=== PATIENT | male | born 1950 | race African-American/Black ===

== ENCOUNTER 2017-03-24 15:13 | Inpatient (IN) | payer BC, MEDICARE ==
[2017-03-24] VITALS (19 sets, daily range): BP systolic 99–133; BP diastolic 53–95
[~2017-03-24] VITALS: Ht 190.5 cm; Wt 125.2 kg
[~2017-03-24 15:13] MED LIST: AMIODARONE HCL200 MG PO; ASPIR 8181 MG PO; CIPRO500 MG PO; CLARITIN-D 241 EACH PO; FENOFIBRATE145 MG PO; FINASTERIDE5 MG PO; FLUTICASONE PRO16 GM; HEMOCYTE PLUS1 EACH PO; MELATONIN 3 MG1 EACH PO; METOPROLOL TART25 MG PO; MILK OF MA2400 MG/10 PO; TAMSULOSIN HCL0.4 MG PO; TRICOR145 MG PO; VITAMIN B12-FO1 EACH PO; VITAMIN C500 M1 PO; VITAMIN D250000 UNIT PO; WARFARIN SODIUM2 MG PO; WARFARIN SODIUM3 MG PO; XARELTO20 MG PO
[2017-03-24] MEDS ORDERED: FERROUS SULFAT325 MG (15:26)
[2017-03-24] MEDS ORDERED: LORATADINE-D 21 EACH PO (15:26)
[2017-03-24] MEDS ORDERED: SODIUM CHLORIDE 0.9% 1000ML 1,000 ML ONE (15:41)
[2017-03-24] MEDS ORDERED: PANTOPRAZOLE 40 MG 10ML VIAL IV STA (15:48)
[2017-03-24] MEDS ORDERED: ACETAMINOPHEN 325 MG TAB PO STA (15:51)
[2017-03-24] MEDS ORDERED: FAMOTIDINE 20 MG/2 ML VIAL IV ONE (16:00)
[2017-03-24] MEDS ORDERED: SODIUM CHLORIDE 0.9% 250ML 250 ML IV ONE ×2 (16:00→16:15)
[2017-03-24] MEDS ORDERED: DIPHENHYDRAMINE HCL INJ 50 MG/ML VIAL IV ONE (16:00)
[2017-03-24] MEDS ORDERED: ACETAMINOPHEN 325 MG TAB PO PRN (16:02)
[2017-03-24] MEDS ORDERED: SODIUM CHLORIDE 0.9% 1000ML 1,000 ML IV STA (16:02)
[2017-03-24 16:07] LABS: BASOPHILS % 0.6 % (0.0-1.0); EOSINOPHILS # (AUTO) 0.1 (0.0-0.4); EOSINOPHILS % 2.2 % (0.0-6.0); HEMATOCRIT 28.9 % (38.2-49.6); HEMOGLOBIN 9.6 g/dL (14.0-18.0); LYMPHOCYTES # (AUTO) 1.3 (1.0-3.2); MEAN CORPUSCULAR HEMOGLOBIN 32.9 pg (28-32); MEAN CORPUSCULAR HGB CONC 33.2 g/dL (31-35); MONOCYTES # (AUTO) 0.5 (0.2-0.8); NEUTROPHILS # (AUTO) 4.3 (2.1-6.9); NEUTROPHILS % 67.9 % (38.7-80.0); PLATELET COUNT 297 x10e3/uL (140-360); RED BLOOD COUNT 2.92 x10e6/uL (4.3-5.7); RED CELL DISTRIBUTION WIDTH 14.5 % (11.7-14.4)
[2017-03-24] MEDS: SODIUM CHLORIDE 0.9% 1000ML 1,000 ML IV SCH ×2 (16:08)
[2017-03-24 16:11] LABS: INR 1.09; PROTHROMBIN TIME 14.7 seconds (11.9-14.5)
[2017-03-24 16:12] LABS: PARTIAL THROMBOPLASTIN TIME 27.7 seconds (23.8-35.5)
[2017-03-24] MEDS ORDERED: DIPHENHYDRAMINE HCL INJ 50 MG/ML VIAL IV PRN (16:15)
[2017-03-24] MEDS ORDERED: FAMOTIDINE 20 MG/2 ML VIAL IV PRN (16:15)
[2017-03-24 16:22] LABS: ALANINE AMINOTRANSFERASE 29 IU/L (0-55); ALBUMIN 3.5 g/dL (3.5-5.0); ALBUMIN/GLOBULIN RATIO 1.4 (0.8-2.0); ALKALINE PHOSPHATASE 33 IU/L (40-150); ANION GAP 12.4 mmol/L (8-16); BLOOD UREA NITROGEN 28 mg/dL (7-26); BUN/CREATININE RATIO 23 (6-25); CALCIUM 8.9 mg/dL (8.4-10.2); CARBON DIOXIDE 21 mmol/L (22-29); CHLORIDE 109 mmol/L (98-107); CREATININE, SERUM 1.23 mg/dL (0.72-1.25); EST GLOMERULAR FILTRATION RATE > 60 ML/MIN (60-); GLUCOSE 95 mg/dL (74-118); MAGNESIUM 2.2 MG/DL (1.3-2.1); POTASSIUM 4.4 mmol/L (3.5-5.1); SODIUM 138 mmol/L (136-145)
[2017-03-24] MEDS: METRONIDAZOLE 500MG/NS 100ML 100 ML IV SCH ×2 (16:34→22:25)
[2017-03-24 16:41] LABS: CREATINE KINASE MB 5.9 ng/mL (0.00-5.00); THYROID STIMULATING HORMONE 0.918 uIU/mL (0.350-4.940); TROPONIN I 0.011 ng/mL (0-0.300)
--- NOTE | 2017-03-24 16:59 | Diagnostic Imaging Report ---
PROCEDURE: A single AP view of the chest. COMPARISON: The 09/14/16 INDICATIONS: RECTAL BLEED TODAY FINDINGS: Lines/tubes: None. Lungs: Limited by low lung volumes and body habitus. Central vascular congestion. No definite focal consolidation. Pleura: There is no pleural effusion or pneumothorax. Heart and mediastinum: The cardiac silhouette is borderline on this AP view. Bones: No acute bony abnormality. IMPRESSION: Limited as above. Central vascular congestion. Dictated by: Moi Dash M.D. on 03/24/2017 at 17:07 Electronically approved by: Moi Dash M.D. on 03/24/2017 at 17:07
[2017-03-24] MEDS: CIPROFLOXACIN 400 MG/D5W 200ML 200 ML IV SCH (17:00)
--- NOTE | 2017-03-24 17:37 | Diagnostic Imaging Report ---
EXAM: CT Abdomen and Pelvis WITH contrast INDICATION: Rectal bleeding and lower abdominal pain. \S\IV ONLY , IF CREAT HIGH, NO IV AND NO ORAL \[id number] \S\1630 \S\Y COMPARISON: None. TECHNIQUE: Abdomen and pelvis were scanned utilizing a multidetector helical scanner from the lung base to the pubic symphysis after administration of IV contrast. Coronal and sagittal reformations were obtained. Routine protocol was performed. Scan was performed when during portal venous phase. IV CONTRAST: 100 mL of Isovue-370 ORAL CONTRAST: Water COMPLICATIONS: None RADIATION DOSE: Total DLP: 870.82 mGy*cm Estimated effective dose: (DLP x 0.015 x size factor) mSv CTDIvol has been reviewed. It is below the limits set by the Radiation Protocol Committee (RPC). FINDINGS: LINES and TUBES: None. LOWER THORAX: Unremarkable. Mild bibasilar atelectasis. HEPATOBILIARY: Multiple hepatic hypodensities which cannot be fully characterized on this single phase study, the largest in left hepatic lobe measuring 2.3 cm (series 2, image 12). Alternatively this could be 2 adjacent smaller lesions. There are additional hypodensities in hepatic dome measuring 0.9 cm (series 2, image 9), right hepatic lobe measuring 1.1 cm (2/19), and subcapsular right hepatic lobe measuring 1.5 cm (2/15). No biliary ductal dilation. GALLBLADDER: No radio-opaque stones or sludge. No wall thickening. SPLEEN: No splenomegaly. PANCREAS: No focal masses or ductal dilatation. ADRENALS: No adrenal nodules KIDNEYS/URETERS: Kidneys enhance symmetrically. No hydronephrosis. 2.9 cm right inferior pole cyst. 1.6 cm left midpole cyst. There are additional subcentimeter hypodensities which are too small to characterize. No stones. GI TRACT: No evidence of bowel obstruction. Redundant sigmoid colon. Colonic diverticulosis without evidence of diverticulitis. Appendix is normal. Small hiatal hernia. PELVIC ORGANS/BLADDER: Unremarkable. LYMPH NODES: No lymphadenopathy. VESSELS: Tortuous lower abdominal aorta without significant atherosclerotic disease. PERITONEUM / RETROPERITONEUM: No free air or fluid. BONES: Multilevel degenerative changes of lumbar spine. SOFT TISSUES: Small fat-containing periumbilical hernia. IMPRESSION: 1. No acute infiltrate process in the abdomen/pelvis. 2. Colonic diverticulosis without evidence of diverticulitis. 3. Multiple hepatic hypodensities which are too small and cannot be fully characterized on this single phase study. Recommend liver protocol MRI for further evaluation. 4. Bilateral renal cysts. The additional subcentimeter renal hypodensities can be also be further evaluated on the subsequent MRI. Signed by: Dr. Moi Dash MD on 03/24/2017 5:33 PM
[2017-03-24] MEDS ORDERED: SODIUM CHLORIDE 0.9% 50ML 50 ML ONE (19:21)
[2017-03-24] MEDS ORDERED: IOPAMIDOL 370 MG/ML 200 ML INFUS..BTL INJ ONE (19:21)
[2017-03-24 20:38] LABS: HEMATOCRIT 25.1 % (38.2-49.6); HEMOGLOBIN 8.3 g/dL (14.0-18.0)
[2017-03-25] VITALS (60 sets, daily range): BP systolic 100–149; BP diastolic 40–112
[2017-03-25] MEDS: SODIUM CHLORIDE 0.9% 1000ML 1,000 ML IV SCH ×3 (01:30→16:43)
[2017-03-25] MEDS: METRONIDAZOLE 500MG/NS 100ML 100 ML IV SCH ×4 (03:15→22:50)
[2017-03-25] MEDS: CIPROFLOXACIN 400 MG/D5W 200ML 200 ML IV SCH ×2 (04:45→18:14)
[2017-03-25 06:04] LABS: HEMATOCRIT 27.6 % (38.2-49.6); HEMOGLOBIN 9.4 g/dL (14.0-18.0)
[2017-03-25 06:29] LABS: ALANINE AMINOTRANSFERASE 24 IU/L (0-55); ALBUMIN/GLOBULIN RATIO 1.3 (0.8-2.0); ALKALINE PHOSPHATASE 31 IU/L (40-150); ANION GAP 8.7 mmol/L (8-16); BLOOD UREA NITROGEN 22 mg/dL (7-26); BUN/CREATININE RATIO 20 (6-25); CALCIUM 8.6 mg/dL (8.4-10.2); CARBON DIOXIDE 23 mmol/L (22-29); CHLORIDE 111 mmol/L (98-107); CREATININE, SERUM 1.12 mg/dL (0.72-1.25); EST GLOMERULAR FILTRATION RATE > 60 ML/MIN (60-); GLUCOSE 87 mg/dL (74-118); POTASSIUM 3.7 mmol/L (3.5-5.1); SODIUM 139 mmol/L (136-145)
[2017-03-25 07:03] LABS: BASOPHILS % 0.5 % (0.0-1.0); EOSINOPHILS # (AUTO) 0.2 (0.0-0.4); EOSINOPHILS % 2.9 % (0.0-6.0); LYMPHOCYTES # (AUTO) 1.2 (1.0-3.2); LYMPHOCYTES % 21.4 % (18.0-39.1); MEAN CORPUSCULAR HEMOGLOBIN 32.1 pg (28-32); MEAN CORPUSCULAR HGB CONC 33.9 g/dL (31-35); MEAN CORPUSCULAR VOLUME 94.6 fL (81-99); MONOCYTES # (AUTO) 0.5 (0.2-0.8); NEUTROPHILS # (AUTO) 3.7 (2.1-6.9); PLATELET COUNT 227 x10e3/uL (140-360); RED BLOOD COUNT 2.96 x10e6/uL (4.3-5.7)
[2017-03-25 07:07] LABS: HEMATOCRIT 27.6 % (38.2-49.6); HEMOGLOBIN 9.4 g/dL (14.0-18.0)
[2017-03-25] MEDS ORDERED: PANTOPRAZOLE 40 MG 10ML VIAL IV SCH (09:00)
[2017-03-25 09:50] LABS: CREATINE KINASE MB 4.8 ng/mL (0.00-5.00); TROPONIN I 0.019 ng/mL (0-0.300)
[2017-03-25] MEDS ORDERED: SODIUM CHLORIDE 0.9% 250ML 250 ML ONE ×2 (11:04→18:55)
[2017-03-25 12:08] LABS: HEMATOCRIT 28.5 % (38.2-49.6); HEMOGLOBIN 9.9 g/dL (14.0-18.0)
[2017-03-25 18:51] LABS: HEMATOCRIT 28.2 % (38.2-49.6); HEMOGLOBIN 9.5 g/dL (14.0-18.0)
[2017-03-26] VITALS (43 sets, daily range): BP systolic 92–143; BP diastolic 39–103
[2017-03-26] MEDS: METRONIDAZOLE 500MG/NS 100ML 100 ML IV SCH ×4 (04:45→22:15)
[2017-03-26] MEDS: PANTOPRAZOLE 40 MG 10ML VIAL IV SCH ×2 (04:56→15:45)
[2017-03-26] MEDS: CIPROFLOXACIN 400 MG/D5W 200ML 200 ML IV SCH ×2 (05:45→17:00)
[2017-03-26 07:32] LABS: HEMATOCRIT 23.4 % (38.2-49.6); MEAN CORPUSCULAR HEMOGLOBIN 32.2 pg (28-32); MEAN CORPUSCULAR HGB CONC 33.8 g/dL (31-35); MEAN CORPUSCULAR VOLUME 95.5 fL (81-99); PLATELET COUNT 230 x10e3/uL (140-360); RED BLOOD COUNT 2.45 x10e6/uL (4.3-5.7); RED CELL DISTRIBUTION WIDTH 16.5 % (11.7-14.4)
[2017-03-26 07:41] LABS: HEMOGLOBIN 7.9 g/dL (14.0-18.0)
[2017-03-26] MEDS: SODIUM CHLORIDE 0.9% 1000ML 1,000 ML IV SCH (07:51)
[2017-03-26 07:56] LABS: INR 1.15; PROTHROMBIN TIME 15.3 seconds (11.9-14.5)
[2017-03-26 07:57] LABS: PARTIAL THROMBOPLASTIN TIME 29.4 seconds (23.8-35.5)
[2017-03-26] MEDS ORDERED: FLUTICASONE PROPIONATE NASAL SPRAY NS PRN (09:00)
[2017-03-26 09:46] LABS: HEMATOCRIT 24.4 % (38.2-49.6); HEMOGLOBIN 8.2 g/dL (14.0-18.0)
[2017-03-26] MEDS ORDERED: SODIUM CHLORIDE 0.9% 250ML 250 ML IV PRN (10:15)
[2017-03-26] MEDS: LORATADINE/PSEUDOEPHEDRINE 24 HR SR TAB PO SCH (11:24)
--- NOTE | 2017-03-26 15:53 | Diagnostic Imaging Report ---
Tagged-RBC GI Bleed Study Clinical information: 66-year-old male with dark red stools x 2 days. Discussion: The patient's own red blood cells were labeled with 24 mCi of technetium-99m pertechnetate using the in vitro method (UltraTag). Dynamic images of the abdomen were obtained through 60 minutes. Distribution of tracer activity appears physiologic throughout the abdomen. No abnormal accumulation of tracer is seen within the gastrointestinal lumen. Impression: No scan evidence of active gastrointestinal bleeding at this time. Signed by: Dr. Kacy Liao M.D. on 03/26/2017 3:49 PM
[2017-03-26] MEDS ORDERED: PHYTONADIONE 10MG/ML 20 MG in SODIUM CHLORIDE 0.9% 50ML 50 ML IV ONE (19:00)
[2017-03-26] MEDS ORDERED: MELATONIN 3 MG TAB PO PRN (21:00)
[2017-03-27] VITALS (26 sets, daily range): BP systolic 86–150; BP diastolic 52–95
[2017-03-27] MEDS: SODIUM CHLORIDE 0.9% 1000ML 1,000 ML IV SCH ×2 (02:15→20:24)
[2017-03-27] MEDS: PANTOPRAZOLE 40 MG 10ML VIAL IV SCH ×2 (03:50→16:08)
[2017-03-27] MEDS: METRONIDAZOLE 500MG/NS 100ML 100 ML IV SCH ×4 (03:50→21:09)
[2017-03-27] MEDS: CIPROFLOXACIN 400 MG/D5W 200ML 200 ML IV SCH ×2 (04:56→16:47)
[2017-03-27] MEDS ORDERED: PHYTONADIONE 10 MG/ML AMP IV ONE (07:15)
[2017-03-27 07:16] LABS: HEMATOCRIT 25.9 % (38.2-49.6); HEMOGLOBIN 8.8 g/dL (14.0-18.0); MEAN CORPUSCULAR HEMOGLOBIN 31.5 pg (28-32); MEAN CORPUSCULAR VOLUME 92.8 fL (81-99); PLATELET COUNT 219 x10e3/uL (140-360); RED BLOOD COUNT 2.79 x10e6/uL (4.3-5.7); RED CELL DISTRIBUTION WIDTH 17.3 % (11.7-14.4)
[2017-03-27 07:36] LABS: INR 1.21; PROTHROMBIN TIME 15.9 seconds (11.9-14.5)
[2017-03-27 07:37] LABS: PARTIAL THROMBOPLASTIN TIME 31.5 seconds (23.8-35.5)
[2017-03-27 08:02] LABS: FERRITIN 59.93 ng/mL (21.81-274.66)
[2017-03-27 08:57] LABS: FOLATE 19.1 ng/mL (7.0-15.4)
[2017-03-27] MEDS ORDERED: PHYTONADIONE 10MG/ML 20 MG in SODIUM CHLORIDE 0.9% 50ML 50 ML IV ONE (09:00)
[2017-03-27] MEDS: LORATADINE/PSEUDOEPHEDRINE 24 HR SR TAB PO SCH (09:19)
[2017-03-27 10:57] LABS: ANION GAP 9.7 mmol/L (8-16); BLOOD UREA NITROGEN 18 mg/dL (7-26); BUN/CREATININE RATIO 16 (6-25); CALCIUM 8.6 mg/dL (8.4-10.2); CARBON DIOXIDE 23 mmol/L (22-29); CHLORIDE 106 mmol/L (98-107); CREATININE, SERUM 1.14 mg/dL (0.72-1.25); EST GLOMERULAR FILTRATION RATE > 60 ML/MIN (60-); GLUCOSE 112 mg/dL (74-118); POTASSIUM 3.7 mmol/L (3.5-5.1); SODIUM 135 mmol/L (136-145)
[2017-03-27 12:14] LABS: HEMOGLOBIN 9.1 g/dL (14.0-18.0)
[2017-03-27 18:23] LABS: HEMATOCRIT 26.9 % (38.2-49.6); HEMOGLOBIN 9.1 g/dL (14.0-18.0)
[2017-03-27 18:34] LABS: INR 1.14; PROTHROMBIN TIME 15.2 seconds (11.9-14.5)
[2017-03-27 18:35] LABS: PARTIAL THROMBOPLASTIN TIME 28.6 seconds (23.8-35.5)
[2017-03-28] VITALS (11 sets, daily range): BP systolic 100–137; BP diastolic 60–93
[2017-03-28] MEDS: PANTOPRAZOLE 40 MG 10ML VIAL IV SCH ×2 (02:44→16:09)
[2017-03-28] MEDS ORDERED: CYANOCOBALAMIN INJ 1,000 MCG/ML VIAL IM ONE (03:00)
[2017-03-28] MEDS: METRONIDAZOLE 500MG/NS 100ML 100 ML IV SCH ×4 (03:13→21:45)
[2017-03-28] MEDS ORDERED: IRON-VITAMIN-MINERAL CAPSULE PO STA (04:13)
[2017-03-28] MEDS: CIPROFLOXACIN 400 MG/D5W 200ML 200 ML IV SCH ×2 (05:22→17:34)
[2017-03-28] MEDS ORDERED: PNEUMOCOCCAL VACCINE POLYVALENT 23 MCG/0.5 ML VIAL IM ONE (06:00)
[2017-03-28 06:51] LABS: HEMATOCRIT 26.4 % (38.2-49.6); HEMOGLOBIN 8.9 g/dL (14.0-18.0); MEAN CORPUSCULAR HEMOGLOBIN 31.6 pg (28-32); MEAN CORPUSCULAR HGB CONC 33.7 g/dL (31-35); MEAN CORPUSCULAR VOLUME 93.6 fL (81-99); PLATELET COUNT 231 x10e3/uL (140-360); RED BLOOD COUNT 2.82 x10e6/uL (4.3-5.7); RED CELL DISTRIBUTION WIDTH 17.2 % (11.7-14.4)
[2017-03-28 07:24] LABS: ANION GAP 9.7 mmol/L (8-16); BLOOD UREA NITROGEN 14 mg/dL (7-26); BUN/CREATININE RATIO 12 (6-25); CARBON DIOXIDE 26 mmol/L (22-29); CHLORIDE 108 mmol/L (98-107); CREATININE, SERUM 1.15 mg/dL (0.72-1.25); EST GLOMERULAR FILTRATION RATE > 60 ML/MIN (60-); GLUCOSE 109 mg/dL (74-118); POTASSIUM 3.7 mmol/L (3.5-5.1); SODIUM 140 mmol/L (136-145)
[2017-03-28] MEDS: LORATADINE/PSEUDOEPHEDRINE 24 HR SR TAB PO SCH (07:43)
[2017-03-28] MEDS: IRON-VITAMIN-MINERAL CAPSULE PO SCH ×2 (07:43→17:34)
[2017-03-28 07:47] LABS: INR 1.2; PROTHROMBIN TIME 15.8 seconds (11.9-14.5)
[2017-03-28 07:48] LABS: PARTIAL THROMBOPLASTIN TIME 29.2 seconds (23.8-35.5)
[2017-03-28] MEDS ORDERED: PHYTONADIONE 10 MG/ML AMP IV ONE ×2 (08:15→23:00)
[2017-03-28] MEDS ORDERED: SODIUM CHLORIDE 0.9% IV NR (09:00)
[2017-03-28] MEDS ORDERED: PHYTONADIONE IV NR (09:00)
[2017-03-28] MEDS: SODIUM CHLORIDE 0.9% 1000ML 1,000 ML IV SCH (16:09)
[2017-03-28] MEDS ORDERED: PHYTONADIONE 10MG/ML 20 MG in SODIUM CHLORIDE 0.9% 100 ML 100 ML IV ONE (23:15)
[2017-03-29] MEDS ORDERED: PHYTONADIONE 10 MG/ML AMP IV SCH (00:45)
[2017-03-29 00:49] VITALS: BP 121/64
[2017-03-29] MEDS: METRONIDAZOLE 500MG/NS 100ML 100 ML IV SCH ×3 (03:39→16:00)
[2017-03-29] MEDS: PANTOPRAZOLE 40 MG 10ML VIAL IV SCH ×2 (03:39→17:20)
[2017-03-29 04:00] VITALS: BP 120/72
[2017-03-29] MEDS: CIPROFLOXACIN 400 MG/D5W 200ML 200 ML IV SCH (06:12)
[2017-03-29 07:47] LABS: BASOPHILS % 0.4 % (0.0-1.0); EOSINOPHILS # (AUTO) 0.4 (0.0-0.4); EOSINOPHILS % 5.1 % (0.0-6.0); HEMATOCRIT 26.9 % (38.2-49.6); LYMPHOCYTES # (AUTO) 1.3 (1.0-3.2); MEAN CORPUSCULAR HEMOGLOBIN 31.6 pg (28-32); MEAN CORPUSCULAR HGB CONC 33.5 g/dL (31-35); MEAN CORPUSCULAR VOLUME 94.4 fL (81-99); MONOCYTES # (AUTO) 0.6 (0.2-0.8); MONOCYTES % 7.8 % (4.4-11.3); NEUTROPHILS # (AUTO) 5.4 (2.1-6.9); NEUTROPHILS % 69.3 % (38.7-80.0); PLATELET COUNT 220 x10e3/uL (140-360); RED BLOOD COUNT 2.85 x10e6/uL (4.3-5.7); RED CELL DISTRIBUTION WIDTH 17.3 % (11.7-14.4)
[2017-03-29 07:56] LABS: INR 1.2; PROTHROMBIN TIME 15.8 seconds (11.9-14.5)
[2017-03-29 08:00] VITALS: BP 121/70
[2017-03-29] MEDS ORDERED: CYANOCOBALAMIN INJ 1,000 MCG/ML VIAL IM SCH (09:00)
[2017-03-29] MEDS: IRON-VITAMIN-MINERAL CAPSULE PO SCH (10:42)
[2017-03-29] MEDS: LORATADINE/PSEUDOEPHEDRINE 24 HR SR TAB PO SCH (10:42)
[2017-03-29] MEDS: SODIUM CHLORIDE 0.9% 1000ML 1,000 ML IV SCH (12:24)
[2017-03-29] MEDS ORDERED: PHYTONADIONE 10 MG/ML AMP IV ONE (13:30)
[2017-03-29] MEDS ORDERED: PHYTONADIONE IV ONE (13:45)
[2017-03-29] MEDS ORDERED: SODIUM CHLORIDE 0.9% IV ONE (13:45)
[2017-03-29 14:25] VITALS: BP 118/74
[2017-03-29 14:53] LABS: KETONES,URINE 1+ (NEGATIVE); LEUKOCYTE ESTERASE ,URINE 2+ (NEGATIVE); URINE UROBILINOGEN 1 mg/dL (0.2 - 1)
[2017-03-29 14:54] LABS: NITRITE,URINE POSITIVE (NEGATIVE)
[2017-03-29 14:55] LABS: BILIRUBIN,URINE 1+ (NEGATIVE); CLARITY,URINE CLEAR (CLEAR); COLOR,URINE AMBER (YELLOW); PROTEIN,URINE DIPSTICK 1+ (NEGATIVE)
[2017-03-29 15:08] LABS: BACTERIA,URINE MANY /HPF; EPITHELIAL CELLS,URINE RARE /LPF; RBC,URINE 0-5 /HPF (0-5); WBC,URINE (MAN) 21-50 /HPF (0-5)
== END 2017-03-29 17:27 | disposition home or self-care (01) | DRG 378 ==
LOC: ER 15:13 → ERHOLD 16:12 → ICU 17:33 → MED/SURG 03-28 19:05 → ICU 03-28 19:13 → MED/SURG 03-28 20:22
PROVIDERS: ADMIT Internal Medicine; ATTEND Internal Medicine
PROC: 30233N1 Transfusion of Nonautologous Red Blood Cells into Peripheral Vein, Percutaneous Approach (ICD-10-PCS; principal; 2017-03-24)
PROC: 30233K1 Transfusion of Nonautologous Frozen Plasma into Peripheral Vein, Percutaneous Approach (ICD-10-PCS; 2017-03-24)
PROC: 30233R1 Transfusion of Nonautologous Platelets into Peripheral Vein, Percutaneous Approach (ICD-10-PCS; 2017-03-25)
DX: K57.31 Diverticulosis of large intestine without perforation or abscess with bleeding (principal); D62 Acute posthemorrhagic anemia; I48.91 Unspecified atrial fibrillation; I10 Essential (primary) hypertension; Z86.73 Personal history of transient ischemic attack (TIA), and cerebral infarction without residual deficits; D64.9 Anemia, unspecified; N40.0 Benign prostatic hyperplasia without lower urinary tract symptoms; Z79.82 Long term (current) use of aspirin; Z23 Encounter for immunization
CPT/HCPCS: 36415; 36430; 71010; 74177; 78278; 80048; 80053; 81001; 82270; 82550; 82553; 82607; 82728; 82746; 82948; 83540; 83690; 83735; 83880; 84443; 84466; 84484; 85002; 85007; 85014; 85018; 85025; 85027; 85045; 85610; 85730; 86850; 86900; 86920; 87086; 90732; 93005; 99285; A9512; J1200; J3420; J3430; J7030; J7050; P9016; P9017; P9034; Q9967

== ENCOUNTER 2017-07-04 10:25 | Emergency (ER) | payer BC, MEDICARE ==
[~2017-07-04] VITALS: Ht 190.5 cm; Wt 125.2 kg
[~2017-07-04 10:25] MED LIST changes: +FERROUS SULFAT325 MG; +LORATADINE-D 21 EACH PO
--- OUTSIDE RECORDS SUMMARY | 2017-07-04 10:27 | XMS REPORT ---
Author Author [facility] Address Unknown Phone Unavailable Care Team Providers Care Bariatric Coordinator Name Role Phone EDILIA HAWTHORNE Unavailable Unavailable Problems This patient has no known problems. Allergies, Adverse Reactions, Alerts This patient has no known allergies or adverse reactions. Medications This patient has no known medications. Results Test Description Test Time Test Comments Text Results Atomic Results Result Comments G I BLEED [place] [address] Patient Name: LEIDA ESPARZA MR # : [id number] : 1950 Age/Sex: 66/M Req #: [id number] Adm Physician: EDILIA HAWTHORNE MD Ordered by: DIPTI GERBER MD Report #: [id number] Location: ICU Room/Bed: [place] [address] Procedure: [id number] NM/G I BLEED Exam Date: 03/26/17 Exam Time: 1420 REPORT STATUS: Signed Tagged-RBC GI Bleed Study Clinical information: 66-year-old male with dark red stools x 2 days. Discussion: The patient's own red blood cells were labeled with 24 mCi of technetium-99m pertechnetate using the in vitro method (UltraTag). Dynamic images of the abdomen were obtained through 60 minutes. Distribution of tracer activity appears physiologic throughout the abdomen. No abnormal accumulation of tracer is seen within the gastrointestinal lumen. Impression: No scan evidence of active gastrointestinal bleeding at this time. Signed by: Dr. Nasir Liao M.D. on 03/26/2017 3:49 PM Dictated By: NASIR LIAO MD 48 COPY TO: DIPTI GERBER MD CHEST SINGLE (PORTABLE) [place] [address] Patient Name: LEIDA ESPARZA MR #: [id number] : 1950 Age/Sex: 66/M Req #: [id number] Adm Physician: EDILIA HAWTHORNE MD Ordered by: JAMAL SMITH MD, MD Report #: [id number] Location: [facility] Room/Bed: [place] [address] Procedure: [id number] DX/CHEST SINGLE (PORTABLE) Exam Date: Exam Time: REPORT STATUS: Signed PROCEDURE: A single AP view of the chest. COMPARISON: The 09/14/16 INDICATIONS: RECTAL BLEED TODAY FINDINGS: Lines/tubes: None. Lungs: Limited by low lung volumes and body habitus. Central vascular congestion. No definite focal consolidation. Pleura: There is no pleural effusion or pneumothorax. Heart and mediastinum: The cardiac silhouette is borderline on this AP view. Bones: No acute bony abnormality. IMPRESSION: Limited as above. Central vascular congestion. Dictated by: Moi Yoo M.D. on 03/24/2017 at 17:07 Electronically approved by: Moi Yoo M.D. on 03/24/2017 at 17:07 Dictated By: MOI YOO MD 06 COPY TO: JAMAL SMITH CT ABDOMEN/PELVIS W [place] [id number] [place] [address] Patient Name: LEIDA ESPARZA MR #: [id number] : 1950 Age/Sex: 66/M Req #: [id number] Adm Physician: EDILIA HAWTHORNE MD Ordered by: JAMAL SMITH MD, MD Report #: [id number] Location: ICU Room/Bed: ICU [facility] Procedure: [id number] CT/CT ABDOMEN/PELVIS W Exam Date: 03/24/17 Exam Time: 1630 REPORT STATUS: Signed EXAM: CT Abdomen and Pelvis WITH contrast INDICATION: Rectal bleeding and lower abdominal pain. COMPARISON: None. TECHNIQUE : Abdomen and pelvis were scanned utilizing a multidetector helical scanner from the lung base to the pubic symphysis after administration of IV contrast. Coronal and sagittal reformations were obtained. Routine protocol was performed. Scan was performed when during portal venous phase. IV CONTRAST: 100 mL of Isovue-370 ORAL CONTRAST: Water COMPLICATIONS: None RADIATION DOSE: Total DLP: 870.82 mGy*cm Estimated effective dose: (DLP x 0.015 x size factor) mSv CTDIvol has been reviewed. It is below the limits set by the Radiation Protocol Committee (RPC). FINDINGS: LINES and TUBES: None. LOWER THORAX: Unremarkable. Mild bibasilar atelectasis. HEPATOBILIARY: Multiple hepatic hypodensities which cannot be fully characterized on this single phase study, the largest in left hepatic lobe measuring 2.3 cm (series 2, image 12). Alternatively this could be 2 adjacent smaller lesions. There are additional hypodensities in hepatic dome measuring 0.9 cm (series 2, image 9), right hepatic lobe measuring 1.1 cm (2/19), and subcapsular right hepatic lobe measuring 1.5 cm (2/15). No biliary ductal dilation. GALLBLADDER: No radio-opaque stones or sludge. No wall thickening. SPLEEN: No splenomegaly. PANCREAS: No focal masses or ductal dilatation. ADRENALS: No adrenal nodules KIDNEYS/URETERS: Kidneys enhance symmetrically. No hydronephrosis. 2.9 cm right inferior pole cyst. 1.6 cm left midpole cyst. There are additional subcentimeter hypodensities which are too small to characterize. No stones. GI TRACT: No evidence of bowel obstruction. Redundant sigmoid colon. Colonic diverticulosis without evidence of diverticulitis. Appendix is normal. Small hiatal hernia. PELVIC ORGANS/BLADDER: Unremarkable. LYMPH NODES: No lymphadenopathy. VESSELS : Tortuous lower abdominal aorta without significant atherosclerotic disease. PERITONEUM / RETROPERITONEUM: No free air or fluid. BONES: Multilevel degenerative changes of lumbar spine. SOFT TISSUES: Small fat- containing periumbilical hernia. IMPRESSION: 1. No acute infiltrate process in the abdomen/pelvis. 2. Colonic diverticulosis without evidence of diverticulitis. 3. Multiple hepatic hypodensities which are too small and cannot be fully characterized on this single phase study. Recommend liver protocol MRI for further evaluation. 4. Bilateral renal cysts. The additional subcentimeter renal hypodensities can be also be further evaluated on the subsequent MRI. Signed by: Dr. Moi Yoo MD on 03/24/2017 5:33 PM Dictated By: MOI YOO MD 173 Transcribed By: BC on 03/24/17 173 COPY TO: JAMAL SMITH
[2017-07-04] MEDS ORDERED: SODIUM CHLORIDE 0.9% 1000ML 1,000 ML IV STA (10:42)
[2017-07-04] MEDS ORDERED: ONDANSETRON HCL INJ 2 MG/ML VIAL IV STA ×2 (10:42→13:33)
[2017-07-04 11:01] LABS: BASOPHILS % 0.3 % (0.0-1.0); EOSINOPHILS # (AUTO) 0.3 (0.0-0.4); EOSINOPHILS % 2.6 % (0.0-6.0); HEMATOCRIT 37.5 % (38.2-49.6); HEMOGLOBIN 12.7 g/dL (14.0-18.0); LYMPHOCYTES # (AUTO) 1.4 (1.0-3.2); LYMPHOCYTES % 14.3 % (18.0-39.1); MEAN CORPUSCULAR HEMOGLOBIN 31.3 pg (28-32); MEAN CORPUSCULAR HGB CONC 33.9 g/dL (31-35); MEAN CORPUSCULAR VOLUME 92.4 fL (81-99); MONOCYTES # (AUTO) 0.9 (0.2-0.8); NEUTROPHILS % 73.5 % (38.7-80.0); PLATELET COUNT 277 x10e3/uL (140-360); RED BLOOD COUNT 4.06 x10e6/uL (4.3-5.7); RED CELL DISTRIBUTION WIDTH 13.2 % (11.7-14.4)
[2017-07-04 11:05] LABS: INR 1.32; PROTHROMBIN TIME 15.4 seconds (11.9-14.5)
[2017-07-04 11:06] LABS: PARTIAL THROMBOPLASTIN TIME 26.2 seconds (23.8-35.5)
[2017-07-04 11:13] LABS: ALANINE AMINOTRANSFERASE 31 IU/L (0-55); ALBUMIN 3.6 g/dL (3.5-5.0); ALBUMIN/GLOBULIN RATIO 1.1 (0.8-2.0); ALKALINE PHOSPHATASE 47 IU/L (40-150); ANION GAP 12.8 mmol/L (8-16); BLOOD UREA NITROGEN 19 mg/dL (7-26); BUN/CREATININE RATIO 14 (6-25); CALCIUM 9.6 mg/dL (8.4-10.2); CARBON DIOXIDE 25 mmol/L (22-29); CHLORIDE 106 mmol/L (98-107); CREATINE KINASE 509 IU/L (30-200); CREATININE, SERUM 1.36 mg/dL (0.72-1.25); EST GLOMERULAR FILTRATION RATE > 60 ML/MIN (60-); GLUCOSE 117 mg/dL (74-118); POTASSIUM 3.8 mmol/L (3.5-5.1); SODIUM 140 mmol/L (136-145)
--- NOTE | 2017-07-04 11:23 | Diagnostic Imaging Report ---
PROCEDURE: CHEST SINGLE (PORTABLE) COMPARISON: Chest x-ray 03/24/17 INDICATIONS: SYNCOPE, ABDOMEN PAIN FINDINGS: LUNGS: Patchy left basilar airspace opacity is new. Right lung is clear. PLEURA: No effusions or pneumothorax. HEART \T\ MEDIASTINUM: The heart is within normal size-limits. Pulmonary arteries are prominent, similar to previous exam. BONES \T\ SOFT TISSUES: No focal osseous lesions. Soft tissues are unremarkable. CONCLUSION: 1. Patchy left basilar airspace opacity could be due to atelectasis or infiltrate. Recommend correlation with PA and lateral chest x-ray when clinically feasible. 2. Prominent pulmonary arteries suggestive of pulmonary artery hypertension. Dictated by: Reyna Alejandre M.D. on 07/04/2017 at 11:23 Electronically approved by: Reyna Alejandre M.D. on 07/04/2017 at 11:23
[2017-07-04 13:00] VITALS: BP 120/77
[2017-07-04] MEDS ORDERED: ONDANSETRON HCL INJ 2 MG/ML VIAL IV SCH (13:45)
[2017-07-04] MEDS ORDERED: MECLIZINE HCL 12.5 MG TAB PO ONE (13:45)
[2017-07-04] MEDS ORDERED: MECLIZINE HCL 12.5 MG TAB PO SCH (13:45)
--- NOTE | 2017-07-04 14:31 | Diagnostic Imaging Report ---
PROCEDURE: X-RAY CHEST, TWO VIEWS COMPARISON: Patients [facility], DX, CHEST SINGLE (PORTABLE), 03/24/2017, 16:35. Patients [facility], DX, CHEST SINGLE (PORTABLE), 07/04/2017, 11:56. INDICATIONS: SYNCOPAL EPISODE, ABNORMAL PORTABLE CHEST X-RAY FINDINGS: LUNGS: Patchy airspace opacity in the base of the left lung has improved. The diaphragms are flat. The intrapulmonary vasculature is normal. PLEURA: No effusions or pneumothorax. HEART \T\ MEDIASTINUM: The heart is within normal size-limits. Pulmonary arteries are prominent but stable. BONES \T\ SOFT TISSUES: No focal osseous lesions. Soft tissues are unremarkable.. CONCLUSION: Resolved left basilar airspace opacity, likely atelectasis. Pulmonary hyperinflation is suggestive of COPD. Dictated by: Reyna Alejandre M.D. on 07/04/2017 at 14:32 Electronically approved by: Reyna Alejandre M.D. on 07/04/2017 at 14:32
== END 2017-07-04 15:50 | disposition home or self-care (01) ==
LOC: ER 10:25
DX: R42 Dizziness and giddiness (principal); R55 Syncope and collapse
CPT/HCPCS: 36415; 71045; 71046; 80053; 82550; 82553; 84484; 85025; 85610; 85730; 93005; 99284; J2405; J7030

== ENCOUNTER → 2017-10-19 | Outpatient (CLI) | payer MEDICARE ==
--- NOTE | 2017-10-19 16:58 | Diagnostic Imaging Report ---
EXAMINATION: MRI of the brain without contrast. HISTORY: TIA, cardiac arrhythmia, confusion COMPARISON: None. TECHNIQUE: Sagittal T2; axial DWI, T2, FLAIR, T1-IR, T2 gradient echo; coronal FLAIR. IMAGE QUALITY: Motion artifact limits evaluation of some of the sequences. FINDINGS: Parenchyma: 1. A few scattered/periventricular white matter T2 and FLAIR hyperintense foci, most likely related to age appropriate minimal chronic microvascular ischemic changes. 2. No mass, hemorrhage, acute or chronic infarcts. Skull: Unremarkable. Vessels: Expected flow voids present in the major arteries and dural sinuses. Extra-axial spaces: No abnormal signal intensity or mass effect. Brain volume: Within normal limits for age. Ventricles: No hydrocephalus or displacement. Foramen magnum: Unremarkable. Sella: Unremarkable. Paranasal / mastoid sinuses: No significant inflammatory disease. IMPRESSION: 1. No acute or chronic infarcts. 2. Minimal age appropriate chronic microvascular changes. Signed by: Dr. Monica Tyler M.D. on 10/19/2017 4:54 PM
== END ==
LOC: CARD 14:45
PROVIDERS: ATTEND Family Medicine
DX: I49.9 Cardiac arrhythmia, unspecified (principal); Z86.73 Personal history of transient ischemic attack (TIA), and cerebral infarction without residual deficits
CPT/HCPCS: 70551; 93880

== ENCOUNTER → 2018-01-30 | Day surgery (SDC) | payer MEDICARE ==
--- NOTE | 2018-01-29 16:56 | Diagnostic Imaging Report ---
EXAMINATION: PA and lateral views of the chest. COMPARISON: Portable chest 11/28/2014 CLINICAL HISTORY: Preop for foot surgery DISCUSSION: Lines/tubes: None. Lungs: The lungs are well inflated. Stable calcified granuloma in the left midlung. There is no evidence of pneumonia or pulmonary edema. Pleura: There is no pleural effusion or pneumothorax. Heart and mediastinum: Cardiomediastinal silhouette is unremarkable. Pulmonary vasculature is normal. Mildly tortuous aorta. Bones and soft tissues: No acute bony abnormalities. Degenerative changes in the thoracic spine IMPRESSION: No acute cardiopulmonary abnormalities. Signed by: Dr. Ousmane Nation M.D. on 01/29/2018 4:52 PM
[2018-01-29 17:00] LABS: BASOPHILS % 0.8 % (0.0-1.0); EOSINOPHILS # (AUTO) 0.2 (0.0-0.4); EOSINOPHILS % 3.5 % (0.0-6.0); HEMATOCRIT 38.6 % (38.2-49.6); LYMPHOCYTES # (AUTO) 1.4 (1.0-3.2); LYMPHOCYTES % 28.3 % (18.0-39.1); MEAN CORPUSCULAR HEMOGLOBIN 33.1 pg (28-32); MEAN CORPUSCULAR HGB CONC 33.7 g/dL (31-35); MEAN CORPUSCULAR VOLUME 98.2 fL (81-99); MONOCYTES # (AUTO) 0.6 (0.2-0.8); NEUTROPHILS # (AUTO) 2.7 (2.1-6.9); NEUTROPHILS % 54.2 % (38.7-80.0); PLATELET COUNT 274 x10e3/uL (140-360); RED BLOOD COUNT 3.93 x10e6/uL (4.3-5.7); RED CELL DISTRIBUTION WIDTH 13.5 % (11.7-14.4)
[~2018-01-30] MED LIST changes: +ASPIRIN81 MG PO; +BACITRACIN 50,000 UNIT VIAL ONE; +BUPIVACAINE HCL 0.5% INJ 30 ML VIAL INJ ONE; +CEFAZOLIN SOD 1 GM VIAL ONE; +DEXAMETHASONE SOD PHOS INJ 4 MG/ML VIAL ONE; +FENTANYL CITRATE/PF 100MCG/2 ML INJ ONE; +GLYCOPYRROLATE INJ 1MG/ 5 ML SYR ONE; +KETOROLAC TROMETHAMINE 30 MG/ML VIAL ONE; +LIDOCAINE HCL 2% LOCAL INJ 5 ML SDV VIAL INJ ONE; +MIDAZOLAM HCL 2 MG/2 ML VIAL ONE; +ONDANSETRON HCL INJ 2 MG/ML VIAL ONE; +PANTOPRAZOLE SO40 MG PO; +PROPOFOL IV EMULSION 10 MG/ML 20 ML VIAL ONE; +SEVOFLURANE INHAL SOLN 250 ML PEN BTL ONE; +TRAZODONE HCL50 MG PO
--- NOTE | 2018-01-30 08:13 | Operative Report ---
DATE OF PROCEDURE: January 30, 2018 PREOPERATIVE DIAGNOSIS: Right hallux rigidus. POSTOPERATIVE DIAGNOSIS: Right hallux rigidus. PLANNED PROCEDURE: Right Mendes bunionectomy with implant. SURGEON: Ar Limon DPM TIRE MOUNTER: Jorge Luis Santiago DPM ANESTHESIA: General with a postoperative block consisting of 10 mL of 0.5% Marcaine plain. HEMOSTASIS: Pneumatic thigh tourniquet set at 350 mmHg for a total time of approximately 30 minutes. MATERIALS: 2-0 Vicryl, 3-0 Vicryl, 4-0 nylon, one size 4 inter-bone toe reference 1st metatarsophalangeal implant. ESTIMATED BLOOD LOSS: Less than 10 mL. PATHOLOGY: None. PROCEDURE NOTE: Patient was seen in the preoperative waiting room where the correct procedure and site was identified. The patient was brought into the operating room and placed on the operating table in the supine position. General anesthesia was initiated at this time. A well-padded pneumatic tourniquet was placed about the patient's right thigh. The right foot, ankle and leg was then scrubbed, prepped and draped in the usual aseptic manner. The right foot, ankle and leg was exsanguinated with an Esmarch bandage. The pneumatic thigh tourniquet was inflated to 350 mmHg for a total time of approximately 30 minutes. Attention was directed to the dorsomedial aspect of the patient's right 1st metatarsophalangeal joint where a 6 cm curvilinear incision was made. The incision was carried through the subcutaneous tissues them from deeper underlying structures. All vital neurovascular structures were identified and retracted medially and laterally. All bleeders were cauterized or ligated as deemed necessary. Next, attention was directed to the 1st interspace where through the same incision a full lateral release was performed consisting of a deep transverse metatarsal ligament, lateral and collateral ligament, and the fibular sesamoid ligament. The hallux was then put through a range of motion and found to be functioning in more proper anatomic alignment. Next, a linear capsulotomy was performed at the level of the metatarsophalangeal joint. The 1st metatarsophalangeal joint was easily visualized at this point. There was noted to be multiple osteophytes with large bony overgrowth to the joint. There was less than 10% of articular cartilage noted to the 1st metatarsal head, as well as the base of the proximal phalanx. At this time, utilizing the sagittal saw the medial eminence, the lateral eminence and the dorsal eminence were all resected and passed off to the back table. The metatarsal head was smoothed to anatomic alignment utilizing a rotary bur. Next, utilizing the sagittal saw the distal articular cartilage of the 1st metatarsal head was resected and passed off to the back table, as well as one-third of the base of the proximal phalanx. The wound was then flushed with copious amounts of sterile saline. Next, per director of golf protocol, one size 4 inter-bone reference toe implant was placed with grommets. The hallux was then put through a range of motion and found to be functioning at a more proper anatomic alignment. This was confirmed via intraoperative fluoroscopy. The capsule was reapproximated with 2-0 Vicryl, subcutaneous tissue with 3-0 Vicryl and the skin was closed using a running interlocking stitch of 4-0 Prolene. The patient tolerated the procedure and anesthesia well. The patient was transferred to the postoperative recovery unit with vital signs stable and vascular status intact. The patient was monitored there for a short period of time before being sent home with the following written and oral instructions: 1. Keep the dressing clean, dry and intact. 2. The patient is to remain partial weightbearing in a postop shoe, and to avoid excessive ambulation until being seen in the office. 3. The patient was given the office number and instructed to contact us if any problems should arise. DICTATED BY JORGE LUIS SANTIAGO DPM Job#: [id number] RENATA
[2018-01-30 08:40] VITALS: BP 107/61
== END | disposition home or self-care (01) ==
LOC: OR 05:04
PROVIDERS: ATTEND Podiatrist Foot & Ankle Surgery
DX: M20.21 Hallux rigidus, right foot (principal); Z01.810 Encounter for preprocedural cardiovascular examination; Z01.812 Encounter for preprocedural laboratory examination; Z01.811 Encounter for preprocedural respiratory examination; G47.33 Obstructive sleep apnea (adult) (pediatric); K21.9 Gastro-esophageal reflux disease without esophagitis; I48.91 Unspecified atrial fibrillation
CPT/HCPCS: 28291; 36415; 71046; 85025; 93005; C1776; J0690; J1100; J1885; J2001; J2250; J2405; J2704; J3490

== ENCOUNTER 2018-03-28 22:19 | Emergency (ER) | payer MEDICARE ==
[~2018-03-28] VITALS: Ht 190.5 cm; Wt 125.2 kg
[~2018-03-28 22:19] MED LIST changes: -BACITRACIN 50,000 UNIT VIAL ONE; -BUPIVACAINE HCL 0.5% INJ 30 ML VIAL INJ ONE; -CEFAZOLIN SOD 1 GM VIAL ONE; -DEXAMETHASONE SOD PHOS INJ 4 MG/ML VIAL ONE; -FENTANYL CITRATE/PF 100MCG/2 ML INJ ONE; -GLYCOPYRROLATE INJ 1MG/ 5 ML SYR ONE; -KETOROLAC TROMETHAMINE 30 MG/ML VIAL ONE; -LIDOCAINE HCL 2% LOCAL INJ 5 ML SDV VIAL INJ ONE; -MIDAZOLAM HCL 2 MG/2 ML VIAL ONE; -ONDANSETRON HCL INJ 2 MG/ML VIAL ONE; -PROPOFOL IV EMULSION 10 MG/ML 20 ML VIAL ONE; -SEVOFLURANE INHAL SOLN 250 ML PEN BTL ONE
[2018-03-28] MEDS ORDERED: SODIUM CHLORIDE 0.9% 1000ML 1,000 ML IV SCH (22:45)
[2018-03-28] MEDS ORDERED: ONDANSETRON HCL INJ 2 MG/ML VIAL IV STA (22:49)
[2018-03-28] MEDS ORDERED: MORPHINE SULFATE INJ 4 MG/ML INJ IV PRN (23:00)
--- NOTE | 2018-03-29 00:24 | Diagnostic Imaging Report ---
EXAM: CT ABDOMEN AND PELVIS WITH IV CONTRAST INDICATION: Abdominal pain, vomiting COMPARISON: CT of the abdomen and pelvis with IV contrast March 24, 2017 TECHNIQUE: The abdomen and pelvis were scanned using a multidetector helical scanner. Coronal and sagittal reformations were obtained. Dose modulation, iterative reconstruction, and/or weight based adjustment of the mA/kV was utilized to reduce the radiation dose to as low as reasonably achievable. Routine protocol performed. IV Contrast: 100 cc Isovue 370 Oral Contrast: None CTDIvol has been reviewed. It is below the limits set by the Radiation Protocol Committee (RPC). FINDINGS: LOWER THORAX: No consolidations LIVER: Stable liver hypodense lesions including left lobe measuring 2.5 x 1.5 cm, right lobe measuring 0.9 cm and right lobe periphery measuring 1 cm. BILIARY: Normal gallbladder. No ductal dilation. SPLEEN: No masses PANCREAS: No masses ADRENALS: No nodules KIDNEYS: No enhancing masses. No hydronephrosis. Stable bilateral simple renal cysts. GI TRACT: No wall thickening or obstruction. The cecum is high riding in the right upper quadrant. Normal appendix. VESSELS: Normal PERITONEUM/RETROPERITONEUM: Trace free pelvic fluid. LYMPH NODES: No lymphadenopathy REPRODUCTIVE ORGANS: The prostate is enlarged at 6 cm in transverse diameter. BLADDER: Normal SOFT TISSUES: Normal BONES: No suspicious bone lesions. IMPRESSION: No acute findings to explain patient's symptoms. Stable hypodense lesions in the liver since 2017, possibly hemangiomas. Prostatomegaly. Trace free pelvic fluid. Signed by: Dr. Carina Foss M.D. on 03/29/2018 12:20 AM
[2018-03-29 01:30] VITALS: BP 141/63
== END 2018-03-29 01:33 | disposition home or self-care (01) ==
LOC: FSED 22:19
DX: R10.33 Periumbilical pain (principal); R10.84 Generalized abdominal pain; R11.2 Nausea with vomiting, unspecified; K52.9 Noninfective gastroenteritis and colitis, unspecified
CPT/HCPCS: 74177; 99284

== ENCOUNTER 2018-11-23 10:06 | Emergency (ER) | payer MEDICARE ==
[~2018-11-23] VITALS: Ht 190.5 cm; Wt 125.2 kg
--- NOTE | 2018-11-23 12:09 | NUR ---
ASSUMING CARE OF PATIENT. GABRIEL Diaz TO COMPLETE HER INITIAL ASSESSMENT
--- NOTE | 2018-11-23 12:36 | NUR ---
PATIENT SITTING UP EATING FOOD TRAY
[2018-11-23 12:54] LABS: BILIRUBIN,URINE SMALL (NEGATIVE); CLARITY,URINE SL CLOUDY (CLEAR); COLOR,URINE BROWN (YELLOW); KETONES,URINE NEGATIVE (NEGATIVE); LEUKOCYTE ESTERASE ,URINE MODERATE (NEGATIVE); NITRITE,URINE POSITIVE (NEGATIVE); PROTEIN,URINE DIPSTICK 2+ (NEGATIVE); URINE UROBILINOGEN 1 mg/dL (0.2 - 1)
[2018-11-23] MEDS ORDERED: CEFTRIAXONE SOD 1 GM VIAL IV ONE (13:15)
[2018-11-23] MEDS ORDERED: CEFTRIAXONE SOD 1 GM/NS 50 ML 50 ML IV ONE (13:15)
[2018-11-23 13:17] LABS: BACTERIA,URINE MODERATE /HPF; EPITHELIAL CELLS,URINE RARE /LPF; RBC,URINE >50 /HPF (0-5)
[2018-11-23 13:18] LABS: BASOPHILS % 0.2 % (0.0-1.0); EOSINOPHILS # (AUTO) 0.2 (0.0-0.4); HEMATOCRIT 37.4 % (38.2-49.6); HEMOGLOBIN 12.4 g/dL (14.0-18.0); LYMPHOCYTES # (AUTO) 0.8 (1.0-3.2); LYMPHOCYTES % 7.4 % (18.0-39.1); MEAN CORPUSCULAR HEMOGLOBIN 32.2 pg (28-32); MEAN CORPUSCULAR HGB CONC 33.2 g/dL (31-35); MEAN CORPUSCULAR VOLUME 97.1 fL (81-99); MONOCYTES # (AUTO) 0.8 (0.2-0.8); MONOCYTES % 7.6 % (4.4-11.3); NEUTROPHILS # (AUTO) 8.4 (2.1-6.9); NEUTROPHILS % 82.4 % (38.7-80.0); PLATELET COUNT 259 x10e3/uL (140-360); RED BLOOD COUNT 3.85 x10e6/uL (4.3-5.7); RED CELL DISTRIBUTION WIDTH 13.5 % (11.7-14.4)
--- NOTE | 2018-11-23 13:28 | NUR ---
PATIENT WITH DARK RED BLOOD, NO CLOTS ONLY RED SEDIMENT
[2018-11-23 13:46] LABS: ALANINE AMINOTRANSFERASE 31 IU/L (0-55); ALBUMIN 3.6 g/dL (3.5-5.0); ALBUMIN/GLOBULIN RATIO 1.2 (0.8-2.0); ALKALINE PHOSPHATASE 53 IU/L (40-150); ANION GAP 13.8 mmol/L (8-16); BLOOD UREA NITROGEN 18 mg/dL (7-26); BUN/CREATININE RATIO 17 (6-25); CALCIUM 10.4 mg/dL (8.4-10.2); CARBON DIOXIDE 25 mmol/L (22-29); CHLORIDE 103 mmol/L (98-107); CREATININE, SERUM 1.06 mg/dL (0.72-1.25); EST GLOMERULAR FILTRATION RATE > 60 ML/MIN (60-); GLUCOSE 92 mg/dL (74-118); POTASSIUM 3.8 mmol/L (3.5-5.1); SODIUM 138 mmol/L (136-145)
--- NOTE | 2018-11-23 14:00 | NUR ---
PATIENT DEMONSTRATED CHANGING CATHETER FROM LEG BACK TO BEDSIDE DRAINAGE. UNDERSTANDS HOW TO KEEP CLAMP CLOSED
--- NOTE | 2018-11-23 14:26 | NUR ---
DISCUSSED WITH PATIENT HERNANDEZ CATH CARE TO REDUCE INFECTION. VERBALIZED UNDERSTANDING
--- NOTE | 2018-11-23 14:40 | NUR ---
AT BEDSIDE TO DATA ENTRY ASSOCIATE PATIENT. RE-EXPLAINED TO ALSO HOW TO CARE FOR HERNANDEZ CATHETER CLEANING, CHANGING FROM LEG BAG TO BEDSIDE DRAINAGE AND KEEPING CLAMP CLOSED. SHE VERBALIZED UNDERSTANDING. SHE ALSO CALLED [facility] OFF[facility] TO GET APPT.
== END 2018-11-23 14:33 | disposition home or self-care (01) ==
LOC: ER 10:06
DX: N39.0 Urinary tract infection, site not specified (principal); D64.9 Anemia, unspecified; E78.5 Hyperlipidemia, unspecified; R33.9 Retention of urine, unspecified; Z86.718 Personal history of other venous thrombosis and embolism; Z86.711 Personal history of pulmonary embolism; Z79.82 Long term (current) use of aspirin
CPT/HCPCS: 36415; 51700; 80053; 81001; 85025; 87086; 87186; 99284; J0696

== ENCOUNTER → 2019-08-16 | Day surgery (SDC) | payer MEDICARE, OTHER ==
[2019-08-13 11:24] LABS: BASOPHILS % 0.7 % (0.0-1.0); EOSINOPHILS # (AUTO) 0.3 (0.0-0.4); EOSINOPHILS % 5.6 % (0.0-6.0); HEMATOCRIT 38.4 % (38.2-49.6); HEMOGLOBIN 12.8 g/dL (14.0-18.0); LYMPHOCYTES # (AUTO) 1.2 (1.0-3.2); LYMPHOCYTES % 27.6 % (18.0-39.1); MEAN CORPUSCULAR HEMOGLOBIN 31.9 pg (28-32); MEAN CORPUSCULAR HGB CONC 33.3 g/dL (31-35); MEAN CORPUSCULAR VOLUME 95.8 fL (81-99); MONOCYTES # (AUTO) 0.5 (0.2-0.8); MONOCYTES % 11.7 % (4.4-11.3); NEUTROPHILS # (AUTO) 2.4 (2.1-6.9); NEUTROPHILS % 54.4 % (38.7-80.0); PLATELET COUNT 267 x10e3/uL (140-360); RED BLOOD COUNT 4.01 x10e6/uL (4.3-5.7); RED CELL DISTRIBUTION WIDTH 13.1 % (11.7-14.4)
[~2019-08-16] MED LIST changes: +DETROL LA4 MG PO; +EPHEDRINE SULFATE INJ 50 MG/ML VIAL ONE; +FENTANYL CITRATE/PF 100MCG/2 ML INJ ONE; +GLUCAGON FOR INJ 1 MG VIAL ONE; +HYOSCYAMINE 0.125 MG TAB ONE; +LIDOCAINE HCL 2% LOCAL INJ 5 ML SDV VIAL INJ ONE; +MIDAZOLAM HCL 2 MG/2 ML VIAL ONE; +MIRALAX17 GM PO; +MULTIVITAMINS1 EAC7 PO; +NAPROXEN500 MG PO; +PROPOFOL IV EMULSION 10 MG/ML 20 ML VIAL ONE; +SAW PALMETTO 1160 MG PO; +SUPER BETA PROSTATE PO; +TIZANIDINE HCL4 M1 PO; +VITAMIN B122500 MCG PO; +VITAMIN C500 M4 PO
[2019-08-16 16:20] VITALS: BP 118/71
--- NOTE | 2019-08-16 23:26 | Operative Report ---
DATE OF PROCEDURE: 08/16/2019 SURGEON: Jose Solano MD PROCEDURE: Colonoscopy with biopsies. INDICATION FOR COLONOSCOPY: Surveillance colonoscopy, father with colon cancer, personal history of colon polyps, history of bright red blood per rectum. MEDICATIONS: The patient was done under MAC, please see anesthesiologist's note. PROCEDURE IN DETAIL: With the patient in left lateral decubitus position, a flexible fiberoptic Olympus colonoscope was inserted into the rectum with ease and advanced all the way to the cecum. It was then withdrawn slowly. Mucosa overlying the cecum appeared to be within normal limits. Diverticular disease was pretty much noted throughout, and it was more prominent in the left colon. Focal nodularity was noted in the proximal ascending colon that was biopsied. The transverse, descending, and sigmoid other than for diverticular disease grossly appeared to be within normal limits. Mucosa overlying the rectum appeared to be within normal limits. The scope was then retroflexed into the distal rectum. Moderate-sized internal hemorrhoids were noted, none of which was actively bleeding. The scope was then straightened out, it was subsequently withdrawn. The patient tolerated the procedure well. IMPRESSION: 1. Focal nodularity, proximal ascending colon biopsied. 2. Pandiverticulosis. 3. Internal hemorrhoids, none actively bleeding. PLAN: Follow up histology. Initiate high-fiber, low-fat diet. Initiate high-fiber supplement. The patient might benefit from a followup colonoscopy in 3 years. Jose Solano MD [facility] [place]YA /[id number] cc: Ramses Wakefield MD
== END | disposition home or self-care (01) ==
LOC: OR 12:13
PROVIDERS: ATTEND Internal Medicine Gastroenterology
DX: K62.5 Hemorrhage of anus and rectum (principal); Z86.010 Personal history of colon polyps; K55.20 Angiodysplasia of colon without hemorrhage; K59.00 Constipation, unspecified; K57.30 Diverticulosis of large intestine without perforation or abscess without bleeding; K64.8 Other hemorrhoids; K29.70 Gastritis, unspecified, without bleeding; K21.9 Gastro-esophageal reflux disease without esophagitis; K20.9 Esophagitis, unspecified; G47.33 Obstructive sleep apnea (adult) (pediatric); I48.91 Unspecified atrial fibrillation; R00.1 Bradycardia, unspecified; Z01.810 Encounter for preprocedural cardiovascular examination; Z01.812 Encounter for preprocedural laboratory examination; Z11.59 Encounter for screening for other viral diseases; Z79.82 Long term (current) use of aspirin; Z68.32 Body mass index [BMI] 32.0-32.9, adult; Z86.73 Personal history of transient ischemic attack (TIA), and cerebral infarction without residual deficits; Z80.0 Family history of malignant neoplasm of digestive organs
CPT/HCPCS: 36415; 45380; 85025; 87635; 93005; J1610; J2001; J2250; J2704; J3010; 45378

== ENCOUNTER → 2020-04-14 | Outpatient (CLI) | payer MEDICARE ==
[~2020-04-14] MED LIST changes: -EPHEDRINE SULFATE INJ 50 MG/ML VIAL ONE; -FENTANYL CITRATE/PF 100MCG/2 ML INJ ONE; +FERROUS SULFATE PO; +FISH OIL 500 M1 EAC1 PO; +FLOMAX0.4 MG PO; -GLUCAGON FOR INJ 1 MG VIAL ONE; -HYOSCYAMINE 0.125 MG TAB ONE; -LIDOCAINE HCL 2% LOCAL INJ 5 ML SDV VIAL INJ ONE; +LORATADINE10 MG PO; +MELATONIN3 MG PO; -MIDAZOLAM HCL 2 MG/2 ML VIAL ONE; -PROPOFOL IV EMULSION 10 MG/ML 20 ML VIAL ONE
[2020-04-14 09:22] LABS: BASOPHILS % 0.5 % (0.0-1.0); EOSINOPHILS # (AUTO) 0.4 (0.0-0.4); EOSINOPHILS % 6.4 % (0.0-6.0); HEMATOCRIT 29.9 % (38.2-49.6); HEMOGLOBIN 9.5 g/dL (14.0-18.0); LYMPHOCYTES # (AUTO) 1.5 (1.0-3.2); LYMPHOCYTES % 25.6 % (18.0-39.1); MEAN CORPUSCULAR HEMOGLOBIN 32.2 pg (28-32); MEAN CORPUSCULAR HGB CONC 31.8 g/dL (31-35); MEAN CORPUSCULAR VOLUME 101.4 fL (81-99); MONOCYTES # (AUTO) 0.7 (0.2-0.8); MONOCYTES % 12.2 % (4.4-11.3); NEUTROPHILS # (AUTO) 3.3 (2.1-6.9); PLATELET COUNT 318 x10e3/uL (140-360); RED BLOOD COUNT 2.95 x10e6/uL (4.3-5.7); RED CELL DISTRIBUTION WIDTH 14.9 % (11.7-14.4)
== END ==
LOC: DX 15:54 → EDSTATUS 04-17 15:30
PROVIDERS: ATTEND Internal Medicine Gastroenterology
DX: Z01.812 Encounter for preprocedural laboratory examination (principal); Z20.828 Contact with and (suspected) exposure to other viral communicable diseases; K62.5 Hemorrhage of anus and rectum; Z01.818 Encounter for other preprocedural examination
CPT/HCPCS: 36415; 85025; 93005; U0002

== ENCOUNTER → 2020-04-29 | Day surgery (SDC) | payer MEDICARE ==
[~2020-04-29] MED LIST changes: +GLUCAGON FOR INJ 1 MG VIAL ONE; +HYOSCYAMINE 0.125 MG TAB ONE; +HYOSCYAMINE SULFATE 0.5 MG/ML INJ ONE; +LIDOCAINE HCL 2% LOCAL INJ 5 ML SDV VIAL INJ ONE; +PROPOFOL IV EMULSION 10 MG/ML 20 ML VIAL ONE
[2020-04-29 10:15] VITALS: BP 121/51
== END | disposition home or self-care (01) ==
LOC: OR 06:19
PROVIDERS: ATTEND Internal Medicine Gastroenterology
DX: K92.1 Melena (principal); Z86.010 Personal history of colon polyps; K63.3 Ulcer of intestine; K55.20 Angiodysplasia of colon without hemorrhage; K57.30 Diverticulosis of large intestine without perforation or abscess without bleeding; K64.8 Other hemorrhoids; I44.0 Atrioventricular block, first degree; E78.5 Hyperlipidemia, unspecified; I48.91 Unspecified atrial fibrillation; D64.9 Anemia, unspecified; N40.0 Benign prostatic hyperplasia without lower urinary tract symptoms; Z01.812 Encounter for preprocedural laboratory examination; Z20.822 Contact with and (suspected) exposure to COVID-19; Z79.82 Long term (current) use of aspirin; Z86.718 Personal history of other venous thrombosis and embolism; Z86.73 Personal history of transient ischemic attack (TIA), and cerebral infarction without residual deficits; Z80.0 Family history of malignant neoplasm of digestive organs
CPT/HCPCS: 45388; U0002; 44391; 45378; 45380; J1610; J1980; J2001

== ENCOUNTER → 2020-09-30 | Outpatient (CLI) | payer MEDICARE ==
[~2020-09-30] MED LIST changes: -GLUCAGON FOR INJ 1 MG VIAL ONE; -HYOSCYAMINE 0.125 MG TAB ONE; -HYOSCYAMINE SULFATE 0.5 MG/ML INJ ONE; -LIDOCAINE HCL 2% LOCAL INJ 5 ML SDV VIAL INJ ONE; -PROPOFOL IV EMULSION 10 MG/ML 20 ML VIAL ONE
== END ==
LOC: MRI 09:38
PROVIDERS: ATTEND Family Medicine
DX: M54.40 Lumbago with sciatica, unspecified side (principal)
CPT/HCPCS: 72148

== ENCOUNTER 2024-10-07 11:00 | Emergency (ER) | payer MEDICARE ==
[~2024-10-07] VITALS: Ht 190.5 cm; Wt 125.2 kg
[2024-10-07 11:10] VITALS: PULSE 66; RESP 18; TEMP 98
[2024-10-07 12:39] LABS: BASOPHILS % 0.6 % (0.0-1.0); EOSINOPHILS % 4.7 % (0.0-6.0); LYMPHOCYTES % 19.4 % (18.0-39.1); MONOCYTES % 11.0 % (4.4-11.3); NEUTROPHILS % 64.1 % (38.7-80.0); RED CELL DISTRIBUTION WIDTH 13.4 % (11.7-14.4)
[2024-10-07 13:08] LABS: EST GLOMERULAR FILTRATION RATE 89.0 ML/MIN (>=60)
[2024-10-07 13:49] VITALS: BP 137/71; PULSE 68; RESP 17; TEMP 97.4; O2SAT 100
== END 2024-10-07 13:50 | disposition home or self-care (01) ==
LOC: ER 11:52
DX: R55 Syncope and collapse (principal); D64.9 Anemia, unspecified; E78.5 Hyperlipidemia, unspecified; Z86.718 Personal history of other venous thrombosis and embolism; Z87.19 Personal history of other diseases of the digestive system
CPT/HCPCS: 36415; 70450; 80053; 83880; 84484; 85025; 93005; 99284